=== PATIENT | female | born 1955 | race Caucasian/White ===

== ENCOUNTER 2017-01-24 05:28 | Day surgery (SDC) | payer OTHER ==
[~2017-01-24] VITALS: Ht 162.6 cm; Wt 119.1 kg
[2017-01-24] MEDS ORDERED: SODIUM CHLORIDE 0.9% 1,000 ML IV ONE ×2 (06:02→06:15)
[2017-01-24] MEDS ORDERED: BENA10TA3 PO (06:37)
[2017-01-24] MEDS ORDERED: HYDR-3110 PO (06:37)
[2017-01-24] MEDS ORDERED: TRAZ-144 PO (06:37)
[2017-01-24] MEDS ORDERED: NITR.4 SL (06:37)
[2017-01-24] MEDS ORDERED: ASPI-1061 PO (06:37)
[2017-01-24] MEDS ORDERED: VITA400C19 PO (06:37)
[2017-01-24] MEDS ORDERED: VITAD1000 PO (06:37)
[2017-01-24] MEDS ORDERED: MECL12.585 PO (06:37)
[2017-01-24] MEDS ORDERED: ATOR40TA28 PO (06:37)
[2017-01-24] MEDS ORDERED: METO50 PO (06:37)
[2017-01-24] MEDS ORDERED: OS500 PO (06:37)
[2017-01-24] MEDS ORDERED: FentaNYL CITRATE-PF 100 MCG/2 ML VIAL ONE (07:09)
[2017-01-24] MEDS ORDERED: MIDAZOLAM HCL 2 MG/2 ML VIAL ONE (07:09)
[2017-01-24] MEDS ORDERED: MethylPREDNISolone SOD SUCC 125 MG/2 ML VIAL IVP ONE (08:45)
[2017-01-24] MEDS ORDERED: MethylPREDNISolone SOD SUCC 125 MG/2 ML VIAL ONE (08:54)
[2017-01-24] MEDS ORDERED: BENZOCAINE 20% 50 MCG/SPRAY 57 GM TP ONE (17:41)
[2017-01-24] MEDS ORDERED: EPINEPHrine 1:1,000 [1 MG/ML] AMP IM ONE (17:41)
[2017-01-24] MEDS ORDERED: LIDOCAINE HCL 4% 50 ML SOLUTION TP ONE (17:41)
[2017-01-24] MEDS ORDERED: ALBUTEROL SULFATE 2.5 MG/0.5 ML NEB SOLUTION NEB ONE (17:41)
[2017-01-24] MEDS ORDERED: LIDOCAINE HCL 2% 30 ML JELLY TP ONE (17:41)
[2017-01-24] MEDS ORDERED: OXYGEN THERAPY IH SCH (20:00)
== END 2017-01-24 10:00 | disposition home or self-care (01) ==
LOC: SURGERY 05:28
PROVIDERS: ATTEND Internal Medicine Critical Care Medicine
DX: J38.4 Edema of larynx (principal); B37.0 Candidal stomatitis; E78.00 Pure hypercholesterolemia, unspecified; J45.909 Unspecified asthma, uncomplicated; F32.9 Major depressive disorder, single episode, unspecified; Z95.5 Presence of coronary angioplasty implant and graft
CPT/HCPCS: 31623; 31624; 71010; 87015 ×2; 87070; 87077; 87101; 87147; 87186; 87205; 87220; 88108; 88305; 88312; J0171; J2250; J2930; J3010; J7030